=== PATIENT | male | born 1975 | race Hispanic/Latino ===

== ENCOUNTER 2018-11-19 15:30 | Emergency (ER) | payer BC ==
[2018-11-19] MEDS ORDERED: TETANUS/DIPHTHERIA TOXOID [ADULT] 0.5 ML VIAL IM ONE (16:51)
[2018-11-19] MEDS ORDERED: KETOROLAC TROMETHAMINE 30MG/ML ONE (16:51)
== END 2018-11-19 18:41 | disposition home or self-care (01) ==
LOC: EDH 15:30
DX: S06.9X1A Unspecified intracranial injury with loss of consciousness of 30 minutes or less, initial encounter (principal); S52.514A Nondisplaced fracture of right radial styloid process, initial encounter for closed fracture; W14.XXXA Fall from tree, initial encounter; Y93.89 Activity, other specified; Y92.89 Other specified places as the place of occurrence of the external cause; Y99.8 Other external cause status
CPT/HCPCS: 70450; 71101; 72125; 72170; 73110; 90471; 90714; 96374; 99285; J1885

== ENCOUNTER 2022-03-30 18:47 | Emergency (ER) | payer BC ==
[~2022-03-30] VITALS: Ht 177.8 cm; Wt 68.0 kg
[2022-03-30] MEDS ORDERED: CEFAZOLIN SODIUM 1 GM VIAL IVP SCH (21:30)
[2022-03-30] MEDS ORDERED: TETANUS/DIPHTHERIA TOXOID [ADULT] 0.5 ML VIAL IM ONE ×2 (21:30)
[2022-03-30] MEDS ORDERED: CEPH500B PO (22:03)
[2022-03-30] MEDS ORDERED: DICL35CA3 PO (22:05)
[2022-03-30 22:28] VITALS: BP 125/86
== END 2022-03-30 22:38 | disposition home or self-care (01) ==
LOC: EDH 18:47
DX: S62.632B Displaced fracture of distal phalanx of right middle finger, initial encounter for open fracture (principal); W23.0XXA Caught, crushed, jammed, or pinched between moving objects, initial encounter; Y93.89 Activity, other specified; Y92.89 Other specified places as the place of occurrence of the external cause; Y99.8 Other external cause status
CPT/HCPCS: 99284; 96374; 90714; 73140; 90471; 12001; J0690